=== PATIENT | male | born 2000 | race Two or more races ===

== ENCOUNTER 2021-10-12 01:08 | Emergency (ER) | payer MEDICAID, OTHER ==
[~2021-10-12] VITALS: Ht 170.2 cm; Wt 56.7 kg
[2021-10-12 02:00] VITALS: BP 114/67
== END 2021-10-12 03:00 | disposition home or self-care (01) ==
LOC: ER 01:08 → EDBD 01:08 → ER 03:00
DX: Z04.1 Encounter for examination and observation following transport accident (principal)